=== PATIENT | female | born 2000 | race Caucasian/White ===

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

== ENCOUNTER 2025-06-28 20:00 | Emergency (ER) | payer OTHER, MEDICAID ==
[2025-06-28 20:09] LABS: MEAN PLATELET VOLUME 8.7 fL (7.1-12.4); PLATELET COUNT,PLT 286 x10(3)uL (151-488); RED BLOOD CELL COUNT 4.74 x10(6)uL (3.60-5.20); RED CELL DISTRIBUTION WIDTH 13.1 % (12.3-16.5); WHITE BLOOD CELL COUNT,WBC 15.4 x10-3/uL (3.0-10.3)
[2025-06-28 20:14] LABS: CARBON DIOXIDE,CO2 22 mmol/L (21-32); CHLORIDE,CL 105 mmol/L (100-110); CREATININE 0.6 mg/dL (0.55-1.02); EST CRCL DRUG DOSING (CG) 124.85 mL/min; ESTIMATED GFR 128 mL/min (>60); GLUCOSE RANDOM 95 mg/dL (80-116); POTASSIUM,K 3.1 mmol/L (3.5-5.3); SODIUM,NA 140 mmol/L (135-145)
[2025-06-28 20:20] LABS: A/G RATIO 1.2; ALANINE AMINOTRANSFERASE,ALT 21 U/L (12-36); ASPARTATE AMNIOTRANSFERASE,AST 17 IU/L (5-25); BILIRUBIN TOTAL 0.7 mg/dL (0.1-1.3); PROTEIN TOTAL,TP 7.1 g/dL (6.0-8.0)
[2025-06-28 20:24] LABS: BLOOD UREA NITROGEN,BUN < 5 mg/dL (7-18)
[2025-06-28 20:30] LABS: INR 0.91 (1.00-1.24)
[2025-06-28 20:31] LABS: LYMPHOCYTES PERCENT MAN 11 % (13-37); MONOCYTES PERCENT MAN 7 % (4-12); SEG NEUTROPHILS PERCENT MAN 82 % (46-82)
[2025-06-28 20:33] LABS: PTT,PARTIAL THROMBOPLSTIN TIME 27.6 SECONDS (24.4-33.2)
[2025-06-28 20:49] LABS: GLUCOSE,URINE NORMAL (NORMAL); OCCULT BLOOD,URINE NEGATIVE (NEGATIVE)
[2025-06-28 20:50] LABS: APPEARANCE,URINE CLEAR (CLEAR)
[2025-06-28] MEDS: Ondansetron 4 MG/2 ML SDV IVPUSH ONE (20:51)
== END 2025-06-28 21:12 | disposition home or self-care (01) ==
LOC: FB.ED 20:00
DX: O99.891 Other specified diseases and conditions complicating pregnancy (principal); R55 Syncope and collapse; O99.281 Endocrine, nutritional and metabolic diseases complicating pregnancy, first trimester; E87.6 Hypokalemia; Z79.899 Other long term (current) drug therapy; Z3A.09 9 weeks gestation of pregnancy
CPT/HCPCS: 36415; 70450; 80053; 81003; 85025; 85610; 85730; 96361; 96374; 99284; J2405; J7030; A9270-GY

== ENCOUNTER 2025-09-27 19:36 | Emergency (ER) | payer MEDICAID, OTHER ==
[2025-09-27] MEDS: Ondansetron 4 MG Tab.DIS PO ONE (20:07)
== END 2025-09-27 20:36 | disposition home or self-care (01) ==
LOC: FB.ED 19:36
DX: K22.6 Gastro-esophageal laceration-hemorrhage syndrome (principal); E66.9 Obesity, unspecified; Z79.899 Other long term (current) drug therapy; Z68.35 Body mass index [BMI] 35.0-35.9, adult
CPT/HCPCS: 99284; Q0162